=== PATIENT | male | born 1995 | race Caucasian/White ===

== ENCOUNTER 2017-02-14 14:42 | Emergency (ER) | payer OTHER ==
[~2017-02-14] VITALS: Ht 175.3 cm; Wt 83.2 kg
[2017-02-14 15:26] VITALS: BP 143/85
--- NOTE | 2017-02-14 19:36 | NUR ---
PATIENT AMBULATED TO ER BED 5.
--- NOTE | 2017-02-14 19:52 | NUR ---
PATIENT BEING EVALUATED BY DR. CARRILLO.
[2017-02-14 20:55] VITALS: BP 137/77
--- NOTE | 2017-02-14 20:55 | NUR ---
Patient discharged with v/s stable. Written and verbal after care instructions given and explained. Patient verbalized understanding. Ambulatory with steady gait. All questions addressed prior to discharge. Advised to follow up with PMD.
== END 2017-02-14 20:55 | disposition home or self-care (01) ==
LOC: MED 14:42
DX: S63.615A Unspecified sprain of left ring finger, initial encounter (principal); X58.XXXA Exposure to other specified factors, initial encounter; Y93.89 Activity, other specified; Y92.89 Other specified places as the place of occurrence of the external cause; Y99.8 Other external cause status
CPT/HCPCS: 73130; 99284